=== PATIENT | female | born 1970 | race Caucasian/White ===

== ENCOUNTER 2020-11-09 12:14 | Emergency (ER) | payer OTHER ==
[2020-11-09 12:19] VITALS: BP 123/78; PULSE 95; TEMP 97; BMI 43.9
[2020-11-09] MEDS ORDERED: METOCLOPRAMIDE HCL INJECTION 10 MG/2 ML VIAL IVPUSH ONE (13:03)
[2020-11-09] MEDS ORDERED: METOCLOPRAMIDE HCL INJECTION 10 MG/2 ML VIAL ONE (13:19)
[2020-11-09 13:34] LABS: BASO % 0.6 % (0-2.0); EOS % 0.6 % (0-4.5); HEMATOCRIT 40.8 % (32.4-45.2); HEMOGLOBIN 13.7 GM/dL (10.7-15.3); LYMPH % 22.2 % (8-40); MCH 30.3 pg (25.7-33.7); MCHC 33.5 g/dl (32.0-36.0); MEAN CELL VOLUME 90.3 fl (80-96); MEAN PLT VOLUME 8.2 fl (7.5-11.1); MONO % 6.2 % (3.8-10.2); NEUT % 70.4 % (42.8-82.8); PLATELET COUNT 252 10^3/uL (134-434); RBC 4.52 M/mm3 (3.60-5.2); RDW 14.1 % (11.6-15.6); WHITE BLOOD COUNT 5.1 K/mm3 (4.0-10.0)
[2020-11-09 14:01] LABS: PH,URINE 6.5 (5.0-8.0); URINE APPEARANCE Clear; URINE BILIRUBIN 1+ (NEGATIVE); URINE COLOR Yellow; URINE GLUCOSE (UA) Negative (NEGATIVE); URINE KETONE Negative (NEGATIVE); URINE LEUK ESTERASE Negative (NEGATIVE); URINE NITRITE Negative (NEGATIVE); URINE PROTEIN Negative (NEGATIVE); URINE UROBILINOGEN 0.2 mg/dL (0.2-1.0)
[2020-11-09 14:06] LABS: HCG,QUALITATIVE URINE NEGATIVE; HYALINE CASTS 0.25 /uL (0-3.1); URINE BACTERIA 23.2 /uL (0-1359); URINE RBC 5.4 /uL (0-23.9); URINE WBC 1.6 /uL (0-25.8)
[2020-11-09 14:08] LABS: CALCIUM 8.6 mg/dL (8.5-10.1)
[2020-11-09 14:09] LABS: BLOOD UREA NITROGEN 6.1 mg/dL (7-18)
[2020-11-09 14:12] LABS: CREATININE 0.5 mg/dL (0.55-1.3)
== END 2020-11-09 14:22 | disposition home or self-care (01) ==
LOC: JERFT 12:14
PROC: 3E033GC Introduction of Other Therapeutic Substance into Peripheral Vein, Percutaneous Approach (ICD-10-PCS; principal; 2020-11-09)
DX: R20.2 Paresthesia of skin (principal)
CPT/HCPCS: 36415; 80048; 81003; 84703; 85025; 99284-25